=== PATIENT | female | born 1980 | race Caucasian/White ===

== ENCOUNTER 2024-11-02 09:25 | Outpatient (CLI) | payer BC, SELFPAY | END 2024-11-02 09:26 | disposition home or self-care (01) | PROVIDERS: PCP Family Medicine; Visit Provider Family Medicine | DX: E78.5 Hyperlipidemia, unspecified (principal); R53.83 Other fatigue; R82.90 Unspecified abnormal findings in urine | CPT/HCPCS: 80053; 80061; 84443; 87086 ==

== ENCOUNTER 2024-11-18 10:36 | Outpatient (CLI) | payer BC, SELFPAY ==
[2024-11-19 21:24] LABS: HPV Source Cervical/Vag; HPV, High Risk by TMA Not Detected
[2024-11-25 14:07] LABS: Pap Test Reviewed by Path Done
== END 2024-11-18 10:37 | disposition home or self-care (01) ==
PROVIDERS: PCP Family Medicine; Visit Provider Family Medicine
DX: Z12.4 Encounter for screening for malignant neoplasm of cervix (principal); Z11.51 Encounter for screening for human papillomavirus (HPV)
CPT/HCPCS: 87624; 87625; 88141; 88142

== ENCOUNTER 2024-12-05 08:01 | Outpatient (CLI) | payer BC, SELFPAY ==
--- NOTE | 2024-12-05 09:09 | P.ANES_ITS ---
Anesthesia Charges Start Date/Time Anesthesia Start Date: 12/05/24 Anesthesia Start Time: 08:30 Stop Date/Time Anesthesia Stop Date: 12/05/24 Anesthesia Stop Time: 09:05 Coding CPT Codes CPT Codes: VICKIS LWR INTST NDSC NOS - 53841 ([id number]) QZ - FOUNDER / CEO [facility] W/O ROOM SERVICE WAITER/WAITRESS BY , P2 - PATIENT W/MILD SYST DISEASE
--- NOTE | 2024-12-05 09:09 | W.ANESCHARGE ---
Anesthesia Charges Start Date/Time Anesthesia Start Date: 12/05/24 Anesthesia Start Time: 08:30 Stop Date/Time Anesthesia Stop Date: 12/05/24 Anesthesia Stop Time: 09:05 Coding CPT Codes CPT Codes: VICKIS LWR INTST NDSC NOS - 35488 ([id number]) QZ - CONCRETE SCULPTOR [facility] W/O SPOOL CARRIER BY , P2 - PATIENT W/MILD SYST DISEASE
== END 2024-12-05 08:02 | disposition home or self-care (01) ==
LOC: OP CLINIC 08:02
PROVIDERS: PCP Family Medicine; Visit Provider Internal Medicine
DX: Z12.11 Encounter for screening for malignant neoplasm of colon (principal); D12.3 Benign neoplasm of transverse colon
CPT/HCPCS: 00811; 00812; 45380; 88305; J2704

== ENCOUNTER 2025-01-13 07:06 | Outpatient (CLI) | payer BC, SELFPAY ==
--- NOTE | 2025-01-13 07:15 | CRLHL7_ITS ---
For Patients: As a result of the 21st Century Cures Act, medical imaging exams and procedure reports are released immediately into your electronic medical record. You may view this report before your referring provider. If you have questions, please contact your health care provider. EXAM: MRI OF THE RIGHT ANKLE, WITHOUT CONTRAST CLINICAL INDICATION: Characterize soft tissue mass. PRIOR SURGERY: None. COMPARISON PLAIN FILMS: 18 Nov 2024. COMPARISON CROSS-SECTIONAL IMAGING STUDIES: None. TECHNICAL: Axial, sagittal and coronal T1, PD, PDFS and STIR images. FINDINGS: OSSEOUS STRUCTURES: No fracture, bone marrow contusion, stress change or marrow replacement process. JOINT SPACES: The ankle and subtalar joint spaces are maintained without joint effusion. No talar dome osteochondral lesion. No joint bodies are identified. The talar-navicular and calcaneocuboid joint spaces are maintained. Patchy sclerosis cysts and edema in the cuboid at the 4th tarsometatarsal joint. Minimal spurring. Remaining tarsometatarsal midfoot joints are unremarkable. Navicular cuneiform joints well-maintained. LIGAMENTS: Syndesmotic Ligaments: The anterior and posterior syndesmotic ligaments are intact. Lateral Ligaments: The anterior talofibular, calcaneofibular and posterior talofibular ligaments are intact. Somewhat small scarred down ATFL may be the sequela of remote injury. Medial Ligaments: The superficial and deep components of the deltoid ligament complex are maintained. Spring Ligaments: The calcaneonavicular spring ligament complex is intact. TENDONS: Flexor Tendons: Small amount of tenosynovitis fluid posterior tibialis and flexor hallucis around the medial ankle. Some fluid at the master knot of Eric level and both the flexor hallucis and flexor digitorum. Extensor Tendons: The anterior extensor tendons are intact. Achilles Tendon: Some mild hazy tendinosis in the substance of the distal tendon and a short shallow low-grade curvilinear fluid defined undersurface partial tear medial distal tendon just above the insertion. Large effusion of the retrocalcaneal bursa with extension into the posterior fat pad above the calcaneus. Peroneal Tendons: The peroneus longus and brevis tendons are intact. No accessory peroneus quartus. TARSAL TUNNEL: The soft tissues of the tarsal tunnel are normal without mass or fluid collection. No abnormality along the course of the medial or lateral plantar nerves. SINUS TARSI: The structures of the sinus tarsi appear normal. No disruption of the interosseous ligaments or significant effacement of fat. Small ganglion wrapping around the extensor retinaculum slip extending into the sinus. PLANTAR SOFT TISSUES: The plantar fascia is intact. There is no significant plantar calcaneal spur. No atrophy or edema of the abductor digiti minimi muscle belly. OTHER FINDINGS: There is no soft tissue mass or fluid collection. IMPRESSION: 1. Achilles tendinopathy and a low-grade undersurface short partial tear. Extensive effusion of the retrocalcaneal bursa. 2. Mild flexor tendon tenosynovitis. 3. 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 Dictated by Ricky Ruvalcaba MD @ 01/13/2025 11:53:12 AM (Electronically Signed)
== END 2025-01-13 07:07 | disposition home or self-care (01) ==
LOC: MRI 07:07
PROVIDERS: PCP Family Medicine; Visit Provider Family Medicine
DX: M79.89 Other specified soft tissue disorders (principal); M65.871 Other synovitis and tenosynovitis, right ankle and foot; S86.011A Strain of right Achilles tendon, initial encounter; M19.071 Primary osteoarthritis, right ankle and foot; M25.471 Effusion, right ankle
CPT/HCPCS: 73723

== ENCOUNTER 2025-01-16 14:47 | Outpatient (CLI) | payer BC, SELFPAY ==
--- NOTE | 2025-01-16 15:00 | CRLHL7_ITS ---
For Patients: As a result of the Century Cures Act, medical imaging exams and procedure reports are released immediately into your electronic medical record. You may view this report before your referring provider. If you have questions, please contact your health care provider. INDICATION: BILATERAL SCREENING MAMMOGRAM, ASYMPTOMATIC 44 Y/O FEMALE COMPARISON: 07/27/2019 TECHNIQUE: Digital mammogram in CC and MLO projections including computer-aided detection (CAD) and tomosynthesis. BREAST COMPOSITION: There are scattered areas of fibroglandular density. FINDINGS: No suspicious findings. ASSESSMENT: BI-RADS 1 Negative RECOMMENDATION: Annual screening mammogram. A lay language report of this examination will be provided to the patient. Dictated by: Myke Pleitez MD @ 01/17/2025 09:50:49 (Electronically Signed)
== END 2025-01-16 14:48 | disposition home or self-care (01) ==
LOC: MAMMO 14:47
PROVIDERS: PCP Family Medicine; Visit Provider Family Medicine
DX: Z12.31 Encounter for screening mammogram for malignant neoplasm of breast (principal)
CPT/HCPCS: 77063; 77067

== ENCOUNTER 2025-02-22 07:28 | Outpatient (CLI) | payer BC, SELFPAY | END 2025-02-22 07:29 | disposition home or self-care (01) | LOC: NFLDREF 02-23 07:15 | PROVIDERS: PCP Family Medicine; Referring Provider Family Medicine; Visit Provider Family Medicine | DX: E78.5 Hyperlipidemia, unspecified (principal) | CPT/HCPCS: 80061 ==

== ENCOUNTER 2025-03-01 09:27 | Day surgery (SDC) | payer BC, SELFPAY ==
[2025-03-01] VITALS (14 sets, daily range): BP systolic 113–134; BP diastolic 69–85; PULSE 54–84; RESP 14–16; TEMP 36.1–36.5; O2SAT 92–100; BMI 38.3
[2025-03-01 10:00] LABS: Ur HCG Qualitative* Negative (Negative)
[2025-03-01] MEDS: LACTATED RINGERS 1000 ML 1,000 ML 100 ML IV ×2 (10:17→14:27)
[2025-03-01] MEDS: SODIUM CHLORIDE 0.9 % (FLUSH) 10 ML SYRINGE IVF (10:17)
--- NOTE | 2025-03-01 11:47 | SUR.PREOP ---
TIME?OUT:?1147 PT/RN/MDA?VERIFICATION?OF?SURGICAL?SITE,?PROCEDURE,?AND?CONSENT OBTAINED?PRIOR?TO?INVASIVE?PROCEDURE.
[2025-03-01] MEDS: MIDAZOLAM HCL 1 MG/ML inj IVP (11:49)
--- NOTE | 2025-03-01 12:29 | P.ANES_ITS ---
Anesthesia Charges Start Date/Time Anesthesia Start Date: 03/01/25 Anesthesia Start Time: 11:57 Stop Date/Time Anesthesia Stop Date: 03/01/25 Anesthesia Stop Time: 14:25 Coding CPT Codes CPT Codes: ANESTH ACHILLES TENDON SURG - 86937 ([id number]) P2 - PATIENT W/MILD SYST DISEASE, QK - EXPRESS CLERK 2-4 CNCRNT ANES PROC, QX - VOLUNTEER MANAGER [facility] W/ MD MED DIRECTION
--- NOTE | 2025-03-01 12:29 | W.ANESCHARGE ---
Anesthesia Charges Start Date/Time Anesthesia Start Date: 03/01/25 Anesthesia Start Time: 11:57 Stop Date/Time Anesthesia Stop Date: 03/01/25 Anesthesia Stop Time: 14:25 Coding CPT Codes CPT Codes: ANESTH ACHILLES TENDON SURG - 45894 ([id number]) P2 - PATIENT W/MILD SYST DISEASE, QK - REBEAMER 2-4 CNCRNT ANES PROC, QX - FINANCIAL ANALYSIS CONSULTANT SVC W/ MD MED DIRECTION
--- NOTE | 2025-03-01 12:29 | W.PM.NB ---
Nerve Block Nerve Block Time Seen by Provider: 11:50 Date Seen: 03/01/25 Type of block requested by surgeon for post-operative analgesia: popliteal Side: right Time out performed: Yes Verification of patient name: Yes Verification of date of : Yes Site marking: site marked Name of person performing procedure: Torey Continuous monitoring Was continuous monitoring of O2 sat, B/P, monitor and storage bin tender, recorded every 15 minutes?: Yes Procedure Checklist: sterile prep, needles and gloves Ultrasound guided. Images saved: Yes Medications given in 5ml increments after negative aspiration: Marcaine %: 0.25 mL: 10 and Exparel mL: 10 Needle gauge: 22 Patient tolerated procedure well: Yes Additional comments: Needle noted adjacent to nerve Block Charges Block Charge (with Pro Fee): Sciatic Nerve Use of Ultrasound Machine for Block: Yes- US Guidance/pain block
--- NOTE | 2025-03-01 14:23 | P.ANES_ITS ---
Anesthesia Charges Start Date/Time Anesthesia Start Date: 03/01/25 Anesthesia Start Time: 11:57 Stop Date/Time Anesthesia Stop Date: 03/01/25 Anesthesia Stop Time: 14:20 Coding CPT Codes CPT Codes: ANESTH ACHILLES TENDON SURG - 76674 ([id number]) P2 - PATIENT W/MILD SYST DISEASE, QX - MANAGER CANCER [facility] W/ MD MED DIRECTION, QK - LEGAL AIDE 2-4 CNCRNT ANES PROC
--- NOTE | 2025-03-01 14:23 | W.ANESCHARGE ---
Anesthesia Charges Start Date/Time Anesthesia Start Date: 03/01/25 Anesthesia Start Time: 11:57 Stop Date/Time Anesthesia Stop Date: 03/01/25 Anesthesia Stop Time: 14:20 Coding CPT Codes CPT Codes: ANESTH ACHILLES TENDON SURG - 14046 ([id number]) P2 - PATIENT W/MILD SYST DISEASE, QX - BAR ATTENDANT [facility] W/ MD MED DIRECTION, QK - INFORMATION SYSTEMS PROFESSOR 2-4 CNCRNT ANES PROC
--- NOTE | 2025-03-01 16:01 | W.PODPROC_ITS ---
Date of Procedure: 03/01/25 Time Seen by Provider: 16:01 Surgeon: Tony Dela Cruz DPM Co-Surgeon: Dr. Smita Brannon Pre-op Diagnosis: 1. Retrocalcaneal exostosis, right lower extremity 2. Haglunds deformity, right lower extremity 3. Achilles tendinosis, right lower extremity 4. right lower extremity pain Post-op Diagnosis: Same Type of Procedure: 1. Retrocalcaneal exostectomy, right lower extremity 2. Achilles tenosynovectomy and debridement, right lower extremity 3. Application of lower extremity posterior splint Indications: Painful achilles tendinitis/haglunds deformity with severe retrocalcaneal bursitis, right Procedure Description: The patient was identified prior to being brought back into the operating room using their name and date of as patient identifiers. The intended surgical care plan was then reviewed in detail with the patient as well as rationale for surgery, most common risks, complications, and expected recovery course. The patient was given opportunity to ask questions, which were to the best of my ability. Patient ultimately voiced no questions or concerns and agreed to proceed forward with the surgery as planned.The patient was brought from the preoperative holding area to the operating room, and placed on the operating room table in the prone position. At this time a timeout was performed by myself and operating room staff to identify the proper patient, site and operation to be performed. A well padded pneumatic thigh tourniquet was applied to the patient's operative lower extremity. The extremity was then scrubbed, prepped and draped in the normal sterile fashion. Attention was then directed to the operative lower limb where a lazy S incision (proximal medial to distal lateral) was placed and dissected to the level of the underlying Achilles tendon and calcaneus while preserving/tagging the paratenon. Care was taken to identify, retract, and protect vital structures and coagulate any bleeders as necessary. The medial and lateral margins of the Achilles tendon and its insertion to the posterior calcaneus was identified and the location of the insertion verified via intra-operative FluoroScan image intensification. The central aspect of the Achilles tendon was incised transversely leaving the most medial and lateral expansions intact and the tendon split lengthwise and elevated creating full-thickness medial and lateral halves of the Achilles tendon exposing the Kathleen's deformity and insertional spur formation. The Undersurface of the Achilles tendon was noted to have degenerative intrasubstance lesions that were resected the tendon was thinned to a normal contour and healthy tissues. Significant inflammation to the retrocalcaneal bursa was identified and sharply excised. The Kathleen's deformity and then the insertional spur formation were resected to a normal anatomical contour with a combination of power and hand instruments. This was verified with intra-operative FluoroScan image intensification. The [employer] Speed-Bridge system was then employed to secure the Achilles tendon onto the posterior- inferior calcaneus with the foot held in physiologic equinus. This was solid and allowed for complete security of the Achilles tendon to the calcaneus and was verified both with direct visualization and intra-operative FluoroScan imaging. Next the midline portion of the Achilles tendon was approximated with a buried absorbable suture. The surgical site was copiously irrigated and the deep tissues re-approximated in layers with un-dyed absorbable sutures and the skin edges re-approximated with non-absorbable sutures. Anatomical alignment, osseous coaptation, satisfactory position of the internal fixation, and reduction of the deformity was appreciated clinically and verified with intra-operative image intensification. The surgical sites were copiously irrigated. Deep Capsular tissues and subcutaneous layers were closed with absorbable sutures and skin was reapproximated with non-absorbable sutures. Upon the release of the pneumatic tourniquet, immediate reperfusion of toes 1 through 5 was noted. A postoperative sir demond ny modified dressing consisting of xeroform, ABDs, Kerlix, 4 x 4's, and an RUDY bandage was applied to the patient's operative extremity. A well-padded plaster of fiberglass splint was applied to keep the pt's ankle in resting plantarflexion. The patient was transferred from the operating room to the post-anesthesia care unit with vital signs stable and vascular status intact to the operative lower extremity. The patient appeared to tolerate both the procedure and anesthesia well. Hemostasis: thigh (95 minutes at 300mmHg) Estimated blood loss (mL): 5 Provider Operated C-arm: 6 intra-operative fluoroscopic images were taken Implants: [employer] speedbridge bone anchors with fibertape x4 Disposition: PACU
== END 2025-03-01 15:49 | disposition home or self-care (01) ==
LOC: OR 09:30
PROVIDERS: Anesthesiology; PCP Family Medicine; Visit Provider Podiatrist
PROC: (CPT 27650; principal; 2025-03-01 11:00)
DX: M77.31 Calcaneal spur, right foot (principal); M92.61 Juvenile osteochondrosis of tarsus, right ankle; M76.61 Achilles tendinitis, right leg; M79.671 Pain in right foot; G89.18 Other acute postprocedural pain
CPT/HCPCS: 28118; 27680; 01472; 64445; 73600; 76000; 76942; 81025; C1713; J0330; J0665; J0666; J0690; J1100; J2250; J2371; J2405; J3010; J7120

== ENCOUNTER 2025-03-17 10:26 | Outpatient (CLI) | payer BC, SELFPAY | END 2025-03-17 10:27 | disposition home or self-care (01) | LOC: NFLDREF 10:27 | PROVIDERS: PCP Family Medicine; Visit Provider Emergency Medicine | DX: R07.89 Other chest pain (principal); R05.9 Cough, unspecified | CPT/HCPCS: 85379 ==

== ENCOUNTER 2025-03-17 14:10 | Outpatient (CLI) | payer BC, SELFPAY ==
--- NOTE | 2025-03-17 14:30 | CRLHL7_ITS ---
For Patients: As a result of the Century Cures Act, medical imaging exams and procedure reports are released immediately into your electronic medical record. You may view this report before your referring provider. If you have questions, please contact your health care provider. INDICATION: Chest pain, cough and elevated D-dimer TECHNIQUE: CT chest PE was acquired with 95 cc Isovue 370 IV contrast. Axial maximum intensity projection reformatted images were performed on the scanner. COMPARISON: None. FINDINGS: Heart and vasculature: Contrast opacification of the pulmonary arterial tree is adequate. No sign of pulmonary embolism. No pericardial effusion. Thoracic aorta is normal in caliber. Lungs and pleura: No pleural effusion or pneumothorax. Bilateral bronchial wall thickening with some endobronchial debris and centrilobular nodules bilaterally, greatest in the right upper lobe with some patchy consolidation in this area as well. Lymph nodes/mediastinum: Right hilar lymph nodes measure up to 12 millimeters in short axis. Left hilar lymph nodes measure 12 millimeters. Chest wall: No masses. Upper abdomen: Normal. Bones: Congenital T9 through T12 fusion. IMPRESSION: 1. No evidence of pulmonary embolus. 2. Bilateral bronchial wall thickening with centrilobular nodularity and mild consolidation consistent with an infectious bronchiolitis/bronchopneumonia. 3. Mildly enlarged bilateral hilar lymph nodes. This is presumed reactive to the underlying pulmonary infection although, as clinically desired, follow-up CT scan in 3 months could confirm. Please note that all CT scans at this facility use dose modulation, iterative reconstruction, and/or weight-based dosing when appropriate to reduce radiation dose to as low as reasonably achievable. Dictated by Ramiro English MD @ 03/17/2025 3:41:14 PM (Electronically Signed)
== END 2025-03-17 14:11 | disposition home or self-care (01) ==
LOC: CT 14:10
PROVIDERS: PCP Family Medicine; Visit Provider Emergency Medicine
DX: R07.9 Chest pain, unspecified (principal); R91.8 Other nonspecific abnormal finding of lung field; R59.0 Localized enlarged lymph nodes; R79.89 Other specified abnormal findings of blood chemistry
CPT/HCPCS: 71275; Q9967